=== PATIENT | female | born 1975 | race Caucasian/White ===

== ENCOUNTER 2019-09-01 20:45 | Emergency (ER) | payer OTHER ==
[~2019-09-01] VITALS: Ht 160 cm; Wt 79.4 kg
[~2019-09-01 20:45] MED LIST: ATOR10TA PO; BENA20TA9 PO; CHOL100040 PO; CYCL5TAB PO; GABA-532 PO; HYDR-4209 PO; INSU100I14 SQ; INSU100V7 SQ
--- NOTE | 2019-09-01 20:50 | NUR ---
PT CAME TO THE ED C/O THROBBING HEADACHE X 2 WEEKS AND MIDSTERNAL CHEST PAIN RADIATING TO LEFT ARM. +NAUSEA +SOB UPON EXERTION. PT HAD PNEUOMONIA LAST MONTH. PT [id number] AND CONNECTED TO THE INDUSTRIAL ACCOUNTANT AND POX
--- NOTE | 2019-09-01 21:36 | NUR ---
SWAB SAMPLE SENT TO LAB
--- NOTE | 2019-09-01 21:37 | NUR ---
URINE COLLECTED AND SENT TO LAB
--- NOTE | 2019-09-01 21:38 | NUR ---
ELECTRICIAN APPRENTICE EFREMSE MADE AWARE OF PT'S ELEVATED BP
[2019-09-01 21:54] LABS: BASOPHILS % (AUTO) 0.3 % (0.0-2.0); EOSINOPHILS % (AUTO) 3.5 % (0.0-6.0); HEMATOCRIT 39 % (33-45); HEMOGLOBIN 13.4 g/dL (11.5-14.8); LYMPHOCYTES # (AUTO) 2.9 /CMM (0.8-4.8); LYMPHOCYTES % (AUTO) 32.2 % (20.0-44.0); MEAN CORPUSCULAR HGB CONC 34 g/dl (31.0-36.0); MEAN CORPUSCULAR VOLUME 81 fL (82-100); MONOCYTES # (AUTO) 0.6 /CMM (0.1-1.30); MONOCYTES % (AUTO) 7.2 % (2.0-12.0); NEUTROPHILS # (AUTO) 5.1 /CMM (1.8-8.9); NEUTROPHILS % (AUTO) 56.8 % (43.0-81.0); PLATELET COUNT (AUTO) 326 /CMM (150-450); RED BLOOD CELL COUNT(AUTO) 4.87 MIL/uL (4.0-5.2)
[2019-09-01 21:55] LABS: APPEARANCE,URINE Cloudy (CLEAR); BILIRUBIN,URINE Negative (NEGATIVE); BLOOD, URINE Large Ery/uL (NEGATIVE); COLOR,URINE Pink (YELLOW); KETONES,URINE Negative (NEGATIVE); LEUKOCYTE ESTERASE ,URINE Negative (NEGATIVE); NITRITE, URINE Negative (NEGATIVE); PH,URINE 8.5 (5.0-8.0); PROTEIN,URINE Negative (NEGATIVE); UGLUCOSE >=1000 mg/dL (NEGATIVE); UROBILINOGEN,URINE 0.2 EU/dL (0.2)
[2019-09-01 22:05] LABS: CARBON DIOXIDE 25 mmol/L (21-32); CHLORIDE 101 mmol/L (98-107); CREATININE 0.8 mg/dL (0.6-1.3); GLUCOSE 319 mg/dL (74-106); POTASSIUM 4.1 mmol/L (3.5-5.1); SODIUM SERUM 135 mmol/L (136-145); UREA NITROGEN, BLOOD 11 mg/dL (7-18)
[2019-09-01 22:16] LABS: BACTERIA,URINE None seen /HPF (None Seen); RBC,URINE 81-100 /HPF (0-2); SQUAMOUS EPITHELIAL CELL,UR Few /HPF (None Seen); WBC,URINE 0-2 /HPF (0-3)
[2019-09-01 22:17] LABS: ALANINE AMINOTRANSFERASE 27 U/L (12-78); ALBUMIN 3.7 g/dL (3.4-5.0); ALKALINE PHOSPHATASE 150 U/L (46-116); ASPARTATE AMINOTRANSFERASE 12 U/L (15-37); B-TYPE NATRIURETIC PEPTIDE 62 PG/ML (0-125); BILIRUBIN,TOTAL 0.2 mg/dL (0.2-1.0); TOTAL PROTEIN, SERUM 7.4 g/dL (6.4-8.2)
[2019-09-01] MEDS ORDERED: IV NS 0.9% 1,000 ML BAG IV ONE (22:30)
[2019-09-01 22:34] LABS: CREATINE KINASE, TOTAL 55 U/L (26-192); FERRITIN 32 ng/mL (8-388)
[2019-09-01 22:45] LABS: C-REACTIVE PROTEIN < 0.2 mg/dL (0.0-0.9)
[2019-09-01] MEDS ORDERED: ONDANSETRON 4 MG TAB.RAPDIS ONE (22:47)
[2019-09-01] MEDS ORDERED: HYDROCODONE/APAP 10/325MG 1 EA TABLET ONE (22:47)
[2019-09-01] MEDS ORDERED: ONDANSETRON 4 MG TAB.RAPDIS SL ONE (23:00)
[2019-09-01] MEDS ORDERED: HYDROCODONE/APAP 10/325MG 1 EA TABLET PO ONE (23:00)
[2019-09-01 23:04] LABS: D-DIMER 0.49 mg/L(FEU (0.17-0.50)
--- NOTE | 2019-09-01 23:45 | NUR ---
Patient discharged to home in stable condition. Written and verbal after care instructions given. Patient verbalizes understanding of instruction.IV removed. Catheter intact and site benign. Pressure and 4x4 applied to site. No bleeding noted.
[2019-09-01 23:46] VITALS: BP 162/81
== END 2019-09-01 23:46 | disposition home or self-care (01) ==
LOC: ER 20:48
DX: U07.1 COVID-19 (principal); I10 Essential (primary) hypertension; R04.2 Hemoptysis; Z87.01 Personal history of pneumonia (recurrent); E11.42 Type 2 diabetes mellitus with diabetic polyneuropathy; E55.9 Vitamin D deficiency, unspecified; Z79.4 Long term (current) use of insulin; Z79.899 Other long term (current) drug therapy; E11.65 Type 2 diabetes mellitus with hyperglycemia; R07.89 Other chest pain
CPT/HCPCS: 36415; 71045; 80053; 81001; 82550; 82728; 83605; 83615; 83880; 84145; 84484; 84703; 85025; 85378; 85730; 86140; 87040 ×2; 87635; 93005; 99285; J7030; J7040; Q0162; 81000-TC; 82248-TC